=== PATIENT | male | born 1980 | race Caucasian/White ===

== ENCOUNTER 2020-07-11 23:32 | Inpatient (IN) | payer BC, SELFPAY ==
[2020-07-11 23:46] VITALS: BP 118/72; PULSE 82; RESP 20; TEMP 36.6; O2SAT 93
[2020-07-12] VITALS (9 sets, daily range): BP systolic 103–120; BP diastolic 60–64; PULSE 70–75; RESP 17–28; TEMP 36.5–37.7; O2SAT 93–97
--- NOTE | 2020-07-12 00:07 | W.PM.HP.N ---
Date of service: 07/11/20 Time of Service: 23:39 Assessment and Plan Assessment and plan (1) Pneumonia due to COVID-19 virus: Status: Acute Assessment and plan: Patient is admitted due to progression of hypoxia in the setting of COVID-19 infection. Respiratory precautions in place. Work-up at [facility] was consistent with Covid pneumonia. Given his requirement for oxygen support, he likely to benefit from dexamethasone and remdesivir, which I will initiate. Continue to monitor respiratory status support as needed. (2) DVT prophylaxis: Status: Acute Assessment and plan: Lovenox every 12 hours dosing given BMI (3) Discharge planning issues: Status: Acute Assessment and plan: Pending clinical improvement. Patient is currently stable on the medical floor. He is a full code History of Present Illness History of Present Illness Chief Complaint: Shortness of breath, COVID-19 positive Narrative: 39-year-old male with no significant past medical history but a BMI around 45 presenting with progression hypoxia noted on home monitoring after diagnosis of COVID-19. Patient states he has had for 6 days. He describes feeling hot and cold, diffuse body aches, nasal congestion and sore throat, and dry cough. He does feel short of breath with activity. He did lose his taste and smell. His symptoms have been pretty steady during the past 6 days, but he did notice after waking the morning of admission that his oxygen saturation was staying in the mid to high 80s where it had previously been in the 90s. Due to this he presented to the [facility]. He was transferred to [facility] due to a bed shortage at [facility]. At [facility] he received ibuprofen and 3 L of IV fluids. This 14-year-old son also has COVID-19 infection. Review of Systems Constitutional Constitutional: Reports body ache(s), Reports chills, Reports fatigue, Reports fever(s), Reports headache(s), Reports lethargy, Reports night sweats and Reports poor appetite Eyes Eyes: Denies change in vision and Denies irritation ENT Ears, Nose, Mouth, and Throat: Denies dizziness, Reports headache(s), Denies mouth lesions, Reports nasal congestion and Reports sore throat Cardiovascular Cardiovascular: Denies chest pain at rest and Denies palpitations Respiratory Respiratory: Reports cough, Denies hemoptysis, Denies excessive phlegm production and Denies wheezing Gastrointestinal Gastrointestinal: Denies abdominal pain, Denies heartburn, Denies diarrhea, Reports nausea and Denies vomiting Comments: Earlier in the week, not currently Genitourinary Genitourinary: Denies hematuria, Denies dysuria and Denies urinary incontinence Comments: Urine was very dark Musculoskeletal Musculoskeletal: Denies arthralgias and Denies joint swelling Integumentary/Breasts Skin/Breast: Denies rash and Denies skin ulcer Neurologic Neurologic: Denies confusion, Denies dizziness, Reports headache(s), Denies localized weakness and Denies sensory deficit Psychiatric Psychiatric: Denies confusion, Denies mood swings and Denies panic attacks Endocrine Endocrine: Reports fatigue and Denies palpitations Hematologic/Lymphatic Hematologic/Lymphatic: Denies easy bleeding Allergic/Immunologic Allergic/Immunologic: Denies wheezing [facility] Medical History (Updated 07/12/20 @ 00:22 by Sonny Brewer) Low back pain Surgical History (Updated 07/12/20 @ 00:14 by Sonny Brewer) History of back surgery Family History (Updated 07/12/20 @ 00:14 by Sonny Brewer) Other Colon cancer Social History (Updated 07/12/20 @ 00:16 by Snony Brewer) Smoking risk assessment performed?: No Alcohol Intake: current Alcohol Intake frequency: holidays/special occasions only Details: 4-5 beers twice a week or so Drug use: Never Do you feel safe at home: Yes Do you feel safe in your relationship?: Yes 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 Appears very tired, but no acute distress at rest. HEENT: Head atraumatic. Conjunctiva clear, no icterus. PEERL, EOMI. no rhinorrhea. MMM, OP benign. Neck is supple with no masses or lymphadenopathy, trachea midline LUNGS: CTAB except faint bibasilar rhonchi.no Rales. No wheezing. Normal effort CV: RRR with no murmurs, gallops, or rubs. ABD: +BS, soft, NT/ND EXT: no cyanosis, clubbing, or edema. normal toes. MSK: No joint redness or swelling NEURO: CN 2-12 grossly intact. Normal movement of 4 extremities. Normal speech and coordination SKIN: Skin is clammy, warm.. No rashs or open wounds. PSYCH: normal mood and affect Results Last Vital Signs Temp 36.6 C 07/11/20 23:46 Pulse 82 07/11/20 23:46 Resp 20 07/11/20 23:46 BP 118/72 07/11/20 23:46 Pulse Ox 93 07/11/20 23:46 COVID-19 Screening Have you, or household traveled for leisure in last 14 days?: No Had IN PERSON contact w/suspected or confirmed C-19 person: Yes
[2020-07-12] MEDS: Dexamethasone 4 MG/ML VIAL 6 MG IVP (00:40)
[2020-07-12] MEDS: Enoxaparin 40 MG/0.4 ML SYR SC ×2 (02:12→14:45)
[2020-07-12] MEDS: REMDESIVIR 200 MG in Normal Saline 250 ML 250 MG IVPB (02:12)
[2020-07-12 07:08] LABS: Platelet Count 143 10^3/uL (130-400)
[2020-07-12] MEDS: Acetaminophen 325 MG TAB 650 MG PO ×2 (09:15→17:54)
[2020-07-12] MEDS: Dexamethasone 4 MG TAB 6 MG PO (09:16)
[2020-07-12 10:40] LABS: Abs Immature Grans 0.04 10^3/uL (0.0-0.06); Absolute Lymphocyte Count 0.86 10^3/uL (1.2-3.4); Absolute Neutrophil Count 5.12 10^3/uL (1.2-6.7); HCT 40.4 % (40.0-50.0); HGB 13.4 g/dL (13.5-17.5); Immature Grans % 0.6; Lymphocytes % 13.4; MCH 29.9 pg (27.0-33.0); MCHC 33.2 % (32.0-36.0); MCV 90.2 fL (80-95); MPV 11.8 fL (8.0-11.0); Monocytes % 6.2; Neutrophils % 79.8; Nucleated RBC 0 %; Platelet Count 149 10^3/uL (130-400); RBC 4.48 10^6/uL (4.36-5.78); RDW 12.7 % (11.8-14.1); RDW-SD 42.5 fL; WBC 6.42 10^3/uL (4.4-10.8)
[2020-07-12 11:01] LABS: ALT 43 U/L (16-63); AST 38 U/L (15-37); Albumin 2.9 g/dL (3.4-5.0); Alkaline Phosphatase 33 U/L (46-116); Anion Gap 10.6 mmol/L (3-11); BUN 15 mg/dL (7-18); Bilirubin, Total 0.5 mg/dL (0.2-1.0); CO2 25.4 mmol/L (21.0-32.0); Calcium 7.7 mg/dL (8.5-10.1); Chloride 102 mmol/L (98-107); Glucose 152 mg/dL (74-106); Potassium 4.2 mmol/L (3.5-5.1); Sodium 138 mmol/L (136-145); Total Protein 6.6 g/dL (6.4-8.2)
[2020-07-12 11:02] LABS: NT-proBNP 59 pg/mL (<300); Troponin I < 0.05 ng/mL (<0.06)
[2020-07-12 11:03] LABS: C-Reactive Protein 1.73 mg/dL (0.0-0.3); LDH 353 U/L (85-227)
[2020-07-12] MEDS: Zinc Sulfate 220 MG TAB PO (11:14)
[2020-07-12] MEDS: Cholecalciferol (Vitamin D3) 1,000 UNIT TAB 2000 UNITS PO (11:14)
[2020-07-12] MEDS: Ascorbic Acid 500 MG TAB 1000 MG PO ×2 (11:14→19:23)
[2020-07-12 11:19] LABS: D-Dimer 840 ng/mlFEU (<500)
[2020-07-12 11:22] LABS: Procalcitonin < 0.1 ng/mL
--- NOTE | 2020-07-12 12:13 | PHA.REVIEW ---
Pharmacy Admission Review - Admission Clinical Review (Last Updated 07/12/20 @ 00:14 by Sonny Brewer) Discharge planning issues (Acute) DVT prophylaxis (Acute) Pneumonia due to COVID-19 virus (Acute) Height 6 ft Weight 152.5 kg - Renal Dosing Renal Dosing: BUN 15 mg/dL (7-18) 07/12/20 10:40 Creatinine 1.0 mg/dL (0.70-1.30) 07/12/20 10:40 Medications needing adjustments: Reviewed (Crcl over 100 mL/min current meds okay.) - Anticoagulation Anticoagulation: Hgb 13.4 g/dL (13.5-17.5) L 07/12/20 10:40 Hct 40.4 % (40.0-50.0) 07/12/20 10:40 Plt Count 149 10^3/uL (130-400) 07/12/20 10:40 Creatinine 1.0 mg/dL (0.70-1.30) 07/12/20 10:40 DVT Prohphylaxis: Reviewed Medications: Enoxaparin - Opiate Usage Evaluate Pain Scale/Pains Meds: N/A - Relevant Labs Sodium 138 mmol/L (136-145) 07/12/20 10:40 Potassium 4.2 mmol/L (3.5-5.1) 07/12/20 10:40 Chloride 102 mmol/L (98-107) 07/12/20 10:40 C-Reactive Protein 1.73 mg/dL (0.0-0.3) H 07/12/20 10:40 Electrolytes, C-Reactive P, ESR: Reviewed - DM Control DM Control: Glucose 152 mg/dL (74-106) H 07/12/20 10:40 Insulin Dosing: Reviewed (BG elevated, no DM noted in medical history and no previous labs on file) - Heart Failure/IN Heart Failure/IN: Troponin I < 0.05 ng/mL (<0.06) 07/12/20 10:40 NT-Pro-B Natriuret Pep 59 pg/mL (<300) 07/12/20 10:40 EF%, AURELIA's, B-Blockers, Diuretics: Reviewed - BP Control BP Control: Blood Pressure 114/60 Blood Pressure 112/60 Blood Pressure 120/64 If elevated: N/A - Qtc Review If Elevated: N/A - IV to PO Switch IV Medications: Reviewed - Home Meds Home Med List reviewed: Reviewed (No home meds listed) - Current meds Current Medication Order Review: Reviewed - Comments Comments/Follow Ups: Watch VS, SCr, LFTs, O2 sat., BG, and for med changes.
--- NOTE | 2020-07-12 13:17 | PDOC.CMIN ---
- If Service Date Differs Date of service: 07/12/20 Time of Service: 13:17 Care Management Initial Assess REASON FOR HOSPITALIZATION:: Pneumonia due to Covid 19 virus PAST MEDICAL HISTORY/PAST SURGICAL HISTORY:: Medical History (Updated 07/12/20 @ 00:22 by Sonny Brewer). Low back pain. Surgical History (Updated 07/12/20 @ 00:14 by Sonny Brewer). History of back surgery PREVIOUS FUNCTIONAL STATUS/SOCIAL/FAMILY SUPPORTS:: Markus lives in [place], [place] with his Zuleyka. He works as a contractor. Markus has a son who also has a Covid 19 infection. CURRENT FUNCTIONAL STATUS:: CM was unable to reach Markus by phone and was also unable to reach hs . Markus is on isolation as he is being treated for Covid pneumonia and CM was unable to visit in person. Information obtained from chart review and staff. ADVANCE DIRECTIVES:: None on file Has patient been provided with info about the portal/API?: No Did the patient sign up for the portal?: No CODE STATUS:: Full Code INSURANCE COVERAGE / FINANCIAL ISSUES:: [employer] PRIMARY CARE PHYSICIAN:: Wei Diaz POTENTIAL DISCHARGE NEEDS:: Follow up with PCP and discharge plan of care. May require continuation of IV therapy on an outpatient basis PATIENT/FAMILY EDUCATION NEEDS:: Review of discharge instructions, appropriate Covid precautions and limitations, follow up plan, Ask Me Three ANTICIPATED BARRIERS TO DISCHARGE:: Covid positive illness TRANSPORTATION:: via private vehicle with family PLAN:: Markus will likely return home with no new services unless additional IV therapy is needed. He will follow up with his community providers and plan of care and transport with family. CM will continue to support Markus and his discharge planning needs.
--- NOTE | 2020-07-12 15:11 | PGE_ITS ---
Date of Service Date of service: 07/12/20 Time of Service: 15:11 Assessment and Plan Assessment and plan (1) Pneumonia due to COVID-19 virus: Status: Acute Assessment and plan: Patient is admitted due to progression of hypoxia in the setting of COVID-19 infection. Respiratory precautions in place. Work-up at [facility] was consistent with Covid pneumonia. Given his requirement for oxygen support, he likely to benefit from dexamethasone and remdesivir, which I will initiate. Continue to monitor respiratory status support as needed. (2) DVT prophylaxis: Status: Acute Assessment and plan: Lovenox 40 mg every 12 hours dosing given BMI. If his d-dimer rises then consider switching to full 1 mg/kg SC Q12h. (3) Hyperglycemia: Status: Acute Assessment and plan: Patient apparently was on prednisone 20 mg x 5 days prior to coming to the ER yesterday. He is now on dexamethsone 6 mg daily for COVID-19 pneumonia w/ hypoxemia. I will monitor his glucose AC/HS, check A1c and provide sliding scale coverage. I will also put him on NPH at 3 units per mg of glucocorticoid equivalent (i.e. 18 units of NPH divided bid) to provide coverage of his hyperglycemic response to corticosteroids. (4) Discharge planning issues: Status: Acute Assessment and plan: Pending clinical improvement. Patient is currently stable on the medical floor. He is a full code Subjective Subjective Interval history since last seen: 39-year-old male non-smoker with no chronic medical history other than obesity presented with progressive hypoxemia. He was diagnosed with COVID-19 on July 07 after developing symptoms the Wednesday before (06/07). Exposure included his mother who visited from [place], [place]. No other known exposures. His son also came down ill w/ COVID-19 at the same time. Symptoms include fever chills myalgias nasal congestion sore throat and a dry cough along with shortness of breath. He also has anosmia and dysgeusia. He brought in amatory pulse oximetry and was monitor his oxygen saturations at home but yesterday morning woke up and noticed his oxygen saturations were in the mid to high 80s whereas it had been 90s. He presented to the emergency department at [facility] in [facility] but because of a shortage of inpatient bed she was transferred to [facility] At [facility] he received IV fluids and ibuprofen. Dr. Brewer admitted the patient and started him on remdesivir and Decadron and enoxaparin at moderate dose 40 mg SC bid. Labs this morning: CBC essentially normal except for mild lymphocytopenia (860). CMP: normal electrolytes, elevate glucose (152), minimal elevated AST 38, LDH 353, CRP 1.73, normal procalcitonin <0.1. Normal troponin and BNP, d-dimer is elevated at 840. Patient is cooperating w/ performing proning maneuvers. His SPO2 is 95% on 2 lpm NC. He has a cough that is non-productive. He denies any current CP, no change in his degree of dyspnea (not dyspneic at rest but gets dyspnea w/ activity); feels very fatigued and tired all the time. Exam Narrative Exam Narrative: Morbidly obese white male lying in his bed in the prone position. He rolled over in side to talk to me. He is not using his accessory respiratory muscles. He is able to speak in full sentences. Lungs are clear to auscultation anteriorly posteriorly there are some fine dry rales no rhonchi no wheezes. Heart is regular rate and rhythm Abdomen is obese soft and nontender Lower extremities are obese but calves are soft nontender negative Homans' sign. No peripheral cyanosis or edema. Objective Last Vital Signs Temp 36.8 C 07/12/20 11:14 Pulse 70 07/12/20 11:14 Resp 20 07/12/20 11:14 BP 114/60 07/12/20 11:14 Pulse Ox 95 07/12/20 11:14 Laboratory Results - last 24 hr 07/12/20 07/12/20 07/12/20 06:40 10:40 10:40 WBC 6.42 RBC 4.48 Hgb 13.4 L Hct 40.4 MCV 90.2 MCH 29.9 MCHC 33.2 RDW 12.7 Plt Count 143 149 MPV 11.8 H Immature Gran % 0.6 Neutrophils % 79.8 Lymphocytes % 13.4 Monocytes % 6.2 Eosinophils % 0.0 Basophils % 0.0 Nucleated RBC % 0 Absolute Neutrophils 5.12 Absolute Lymphocytes 0.86 L Absolute Monocytes 0.40 Absolute Eosinophils 0.00 Absolute Basophils 0.00 D-Dimer Sodium 138 Potassium 4.2 Chloride 102 Carbon Dioxide 25.4 Anion Gap 10.6 BUN 15 Creatinine 1.0 Estimated GFR/1.73 m2 >= 60.00 Glucose 152 H Calcium 7.7 L Total Bilirubin 0.5 AST 38 H ALT 43 Alkaline Phosphatase 33 L Lactate Dehydrogenase Troponin I C-Reactive Protein NT-Pro-B Natriuret Pep Total Protein 6.6 Albumin 2.9 L Procalcitonin Patient ABO/Rh Antibody Screen 07/12/20 07/12/20 07/12/20 10:40 10:40 10:40 WBC RBC Hgb Hct MCV MCH MCHC RDW Plt Count MPV Immature Gran % Neutrophils % Lymphocytes % Monocytes % Eosinophils % Basophils % Nucleated RBC % Absolute Neutrophils Absolute Lymphocytes Absolute Monocytes Absolute Eosinophils Absolute Basophils D-Dimer 840 H Sodium Potassium Chloride Carbon Dioxide Anion Gap BUN Creatinine Estimated GFR/1.73 m2 Glucose Calcium Total Bilirubin AST ALT Alkaline Phosphatase Lactate Dehydrogenase 353 H Troponin I C-Reactive Protein 1.73 H NT-Pro-B Natriuret Pep Total Protein Albumin Procalcitonin Patient ABO/Rh O Positive Antibody Screen Negative 07/12/20 07/12/20 10:40 10:40 WBC RBC Hgb Hct MCV MCH MCHC RDW Plt Count MPV Immature Gran % Neutrophils % Lymphocytes % Monocytes % Eosinophils % Basophils % Nucleated RBC % Absolute Neutrophils Absolute Lymphocytes Absolute Monocytes Absolute Eosinophils Absolute Basophils D-Dimer Sodium Potassium Chloride Carbon Dioxide Anion Gap BUN Creatinine Estimated GFR/1.73 m2 Glucose Calcium Total Bilirubin AST ALT Alkaline Phosphatase Lactate Dehydrogenase Troponin I < 0.05 C-Reactive Protein NT-Pro-B Natriuret Pep 59 Total Protein Albumin Procalcitonin < 0.1 Patient ABO/Rh Antibody Screen
--- NOTE | 2020-07-12 19:10 | RESPIRATORY ---
RT asked by Nursing to assess patient when ambulating to bathroom for desaturations. RT had patient walk from bed to door back twice. Patient maintained SpO2 of 91%-93% on 2L and walked at slow pace. Rt instructed patient to prone as much as possible tonight and if not lay, on either side, no back sleeping. Rt suggested to place patient on 3L NC when he's moving to prevent desaturation.
[2020-07-12] MEDS: Atorvastatin 40 MG TAB PO (19:24)
[2020-07-12] MEDS: Normal Saline Flush 10 ML SYR IVP ×2 (21:25→22:51)
[2020-07-12] MEDS: Melatonin 3 MG TAB 6 MG PO (21:25)
[2020-07-12] MEDS: Insulin NPH-Human 300 UNITS/3 ML PEN 9 UNIT SC (22:40)
[2020-07-12] MEDS: traMADol 50 MG TAB 100 MG PO (22:50)
[2020-07-13] VITALS (12 sets, daily range): BP systolic 95–108; BP diastolic 47–55; PULSE 51–77; RESP 16–18; TEMP 36.2–36.8; O2SAT 92–96
[2020-07-13] MEDS: Enoxaparin 40 MG/0.4 ML SYR SC ×2 (03:11→15:15)
[2020-07-13 07:21] LABS: Abs Immature Grans 0.04 10^3/uL (0.0-0.06); Absolute Basophil Count 0.01 10^3/uL (0.0-0.2); Absolute Lymphocyte Count 1.53 10^3/uL (1.2-3.4); Absolute Monocyte Count 0.63 10^3/uL (0.1-0.8); Absolute Neutrophil Count 5.83 10^3/uL (1.2-6.7); Basophils % 0.1; HCT 42.1 % (40.0-50.0); Immature Grans % 0.5; MCH 29.4 pg (27.0-33.0); MCHC 33.3 % (32.0-36.0); MCV 88.3 fL (80-95); MPV 12.1 fL (8.0-11.0); Monocytes % 7.8; Neutrophils % 72.6; Nucleated RBC 0 %; Platelet Count 176 10^3/uL (130-400); RBC 4.77 10^6/uL (4.36-5.78); RDW 12.5 % (11.8-14.1); RDW-SD 40.8 fL; WBC 8.04 10^3/uL (4.4-10.8)
[2020-07-13 07:33] LABS: ALT 48 U/L (16-63); AST 39 U/L (15-37); Alkaline Phosphatase 35 U/L (46-116); Anion Gap 6.3 mmol/L (3-11); BUN 17 mg/dL (7-18); Bilirubin, Total 0.6 mg/dL (0.2-1.0); C-Reactive Protein 0.94 mg/dL (0.0-0.3); CO2 28.7 mmol/L (21.0-32.0); Chloride 103 mmol/L (98-107); Glucose 100 mg/dL (74-106); Potassium 4.1 mmol/L (3.5-5.1); Sodium 138 mmol/L (136-145); Total Protein 6.8 g/dL (6.4-8.2)
[2020-07-13 07:44] LABS: Hemoglobin A1C 5.7 % (<5.7)
[2020-07-13 07:51] LABS: D-Dimer 715 ng/mlFEU (<500)
[2020-07-13] MEDS: Insulin NPH-Human 300 UNITS/3 ML PEN 9 UNIT SC ×2 (09:02→17:18)
[2020-07-13] MEDS: Dexamethasone 4 MG TAB 6 MG PO (09:03)
[2020-07-13] MEDS: Cholecalciferol (Vitamin D3) 1,000 UNIT TAB 2000 UNITS PO (09:03)
[2020-07-13] MEDS: Zinc Sulfate 220 MG TAB PO (09:03)
[2020-07-13] MEDS: traMADol 50 MG TAB 100 MG PO ×2 (09:04→23:08)
[2020-07-13] MEDS: Ascorbic Acid 500 MG TAB 1000 MG PO ×2 (09:04→23:07)
--- NOTE | 2020-07-13 11:04 | CMPROGNOTE_ITS ---
- If Service Date Differs Date of service: 07/13/20 Time of Service: 11:04 Care Management Progress Note S/O: Markus is improving but continues to require inpatient level of care. He continues treatment with oral Decadron and is receiving Remdesivir infusions. His oxygen saturation was 96% on 2L of O2. His O2 was weaned down to 1L today. Markus continues to be short of breath with activity. A: Markus is a 39 year old male admitted to [facility] on 07/11/2020 for pneumonia due to Covid 19. P: No change in plan. Markus will likely return home with no new services unless additional IV therapy is needed. He will follow up with his community providers and plan of care and transport with family. CM will continue to support Marksu and his discharge planning needs.
[2020-07-13] MEDS: Acetaminophen 325 MG TAB 650 MG PO (15:15)
--- NOTE | 2020-07-13 17:01 | W.PM.PROGNOT ---
Date of Service Date of service: 07/13/20 Time of Service: 17:01 Assessment and Plan Assessment and plan (1) Pneumonia due to COVID-19 virus: Status: Acute Assessment and plan: Continue decadron/remdesivir. Continue proning. Continue vitamin c, d, zinc, melatonin, pepcid. Encourage IS. Wean O2 as tolerated. (2) Hypoxia: Status: Acute Assessment and plan: As above (3) Hyperglycemia: Status: Acute Assessment and plan: Prediabetes by labs (A1C of 5.7). STeroid- induced hyperglycemia is a factor. DM educator consulted. Continue NPH/SSI. COntinue carb consistent diet while on steroids. (4) DVT prophylaxis: Status: Acute Assessment and plan: Lovenox 40 mg every 12 hours. (5) Discharge planning issues: Status: Acute Assessment and plan: Full code Continues to require hospitalization Subjective Subjective Interval history since last seen: Mr Ortega states that he sometimes feels better and sometimes worse. He gets waves of diaphoresis when he has to breathe. No chest pain per se, but there is discomfort. Cough is productive of clear sputum. Denies nausea/diarrhea. Appetite is poor. O2 just weaned down to 1L. Proning. Exam Narrative Exam Narrative: General: pleasant obese male who is laying on his right side when I came to see him, A&Ox3, no dyspnea/tachypnea HEENT: EOMI, MMM Heart: RRR, no m/r/g Lungs:crackles R base Abdomen: soft, nontender, nondistended Extremities: trace edema BLEs, symmetric Objective Last Vital Signs Temp 36.2 C L 07/13/20 15:14 Pulse 65 07/13/20 15:14 Resp 18 07/13/20 15:14 BP 105/52 L 07/13/20 15:14 Pulse Ox 92 07/13/20 16:01 Laboratory Results - last 24 hr 07/13/20 07/13/20 07/13/20 06:55 06:55 06:55 WBC 8.04 RBC 4.77 Hgb 14.0 Hct 42.1 MCV 88.3 MCH 29.4 MCHC 33.3 RDW 12.5 Plt Count 176 MPV 12.1 H Immature Gran % 0.5 Neutrophils % 72.6 Lymphocytes % 19.0 Monocytes % 7.8 Eosinophils % 0.0 Basophils % 0.1 Nucleated RBC % 0 Absolute Neutrophils 5.83 Absolute Lymphocytes 1.53 Absolute Monocytes 0.63 Absolute Eosinophils 0.00 Absolute Basophils 0.01 D-Dimer 715 H Sodium 138 Potassium 4.1 Chloride 103 Carbon Dioxide 28.7 Anion Gap 6.3 BUN 17 Creatinine 1.0 Estimated GFR/1.73 m2 >= 60.00 Glucose 100 D Hemoglobin A1c Calcium 8.0 L Total Bilirubin 0.6 AST 39 H ALT 48 Alkaline Phosphatase 35 L C-Reactive Protein 0.94 H Total Protein 6.8 Albumin 3.0 L 07/13/20 06:55 WBC RBC Hgb Hct MCV MCH MCHC RDW Plt Count MPV Immature Gran % Neutrophils % Lymphocytes % Monocytes % Eosinophils % Basophils % Nucleated RBC % Absolute Neutrophils Absolute Lymphocytes Absolute Monocytes Absolute Eosinophils Absolute Basophils D-Dimer Sodium Potassium Chloride Carbon Dioxide Anion Gap BUN Creatinine Estimated GFR/1.73 m2 Glucose Hemoglobin A1c 5.7 Calcium Total Bilirubin AST ALT Alkaline Phosphatase C-Reactive Protein Total Protein Albumin
[2020-07-13] MEDS: Insulin Aspart 300 UNITS/3 ML PEN SC (17:18)
[2020-07-13] MEDS: Normal Saline 500 ML 30 ML IV (23:05)
[2020-07-13] MEDS: Normal Saline Flush 10 ML SYR IVP (23:06)
[2020-07-13] MEDS: Famotidine 20 MG TAB PO (23:07)
[2020-07-13] MEDS: Melatonin 3 MG TAB 6 MG PO (23:07)
[2020-07-13] MEDS: Atorvastatin 40 MG TAB PO (23:08)
[2020-07-14] VITALS (11 sets, daily range): BP systolic 94–120; BP diastolic 49–64; PULSE 46–73; RESP 18–22; TEMP 36.3–36.8; O2SAT 93–95
[2020-07-14] MEDS: Enoxaparin 40 MG/0.4 ML SYR SC ×2 (02:20→15:24)
[2020-07-14 07:24] LABS: Abs Immature Grans 0.04 10^3/uL (0.0-0.06); Absolute Basophil Count 0.01 10^3/uL (0.0-0.2); Absolute Lymphocyte Count 1.56 10^3/uL (1.2-3.4); Absolute Monocyte Count 0.77 10^3/uL (0.1-0.8); Absolute Neutrophil Count 3.59 10^3/uL (1.2-6.7); Basophils % 0.2; HCT 42.9 % (40.0-50.0); Immature Grans % 0.7; Lymphocytes % 26.1; MCH 29.2 pg (27.0-33.0); MCHC 32.6 % (32.0-36.0); MCV 89.6 fL (80-95); MPV 11.5 fL (8.0-11.0); Monocytes % 12.9; Neutrophils % 60.1; Nucleated RBC 0 %; Platelet Count 156 10^3/uL (130-400); RBC 4.79 10^6/uL (4.36-5.78); RDW 12.5 % (11.8-14.1); RDW-SD 41.7 fL; WBC 5.97 10^3/uL (4.4-10.8)
[2020-07-14 07:59] LABS: D-Dimer 571 ng/mlFEU (<500)
[2020-07-14 08:21] LABS: ALT 49 U/L (16-63); AST 34 U/L (15-37); Albumin 2.9 g/dL (3.4-5.0); Alkaline Phosphatase 31 U/L (46-116); Anion Gap 5.8 mmol/L (3-11); BUN 17 mg/dL (7-18); Bilirubin, Total 0.7 mg/dL (0.2-1.0); CO2 29.2 mmol/L (21.0-32.0); CREATININE 0.8 mg/dL (0.70-1.30); Calcium 8.1 mg/dL (8.5-10.1); Chloride 104 mmol/L (98-107); Ferritin 1311 ng/mL (26-388); Glucose 96 mg/dL (74-106); Potassium 4.1 mmol/L (3.5-5.1); Sodium 139 mmol/L (136-145); Total Protein 6.6 g/dL (6.4-8.2); Troponin I < 0.05 ng/mL (<0.06)
[2020-07-14 08:28] LABS: C-Reactive Protein 1.75 mg/dL (0.0-0.3)
[2020-07-14] MEDS: Insulin NPH-Human 300 UNITS/3 ML PEN 9 UNIT SC ×2 (08:34→17:13)
[2020-07-14] MEDS: Famotidine 20 MG TAB PO ×2 (08:35→19:35)
[2020-07-14] MEDS: Cholecalciferol (Vitamin D3) 1,000 UNIT TAB 4000 UNITS PO (08:35)
[2020-07-14] MEDS: Dexamethasone 4 MG TAB 6 MG PO (08:35)
[2020-07-14] MEDS: Ascorbic Acid 500 MG TAB 1000 MG PO ×2 (08:35→19:35)
[2020-07-14] MEDS: Zinc Sulfate 220 MG TAB PO (08:35)
[2020-07-14] MEDS: Normal Saline 1,000 ML 100 ML IV ×2 (09:47→19:43)
--- NOTE | 2020-07-14 14:20 | CMPROGNOTE_ITS ---
- If Service Date Differs Date of service: 07/14/20 Time of Service: 14:20 Care Management Progress Note S/O: Markus is improving but continues to require inpatient level of care. He continues treatment with oral Decadron , Remdesivir infusions and proning. His oxygen saturation remains between 93 and 95% on 1 L of nasal O2. Markus has had a couple of episodes of diaphoresis today and continues to be short of breath with activity. A: Markus is a 39 year old male admitted to [facility] on 07/11/2020 for pneumonia due to Covid 19. P: No change in plan. Markus will likely return home with no new services unless additional IV therapy is needed. He will follow up with his community providers and plan of care and transport with family. CM will continue to support Markus and his discharge planning needs.
--- NOTE | 2020-07-14 16:51 | PGE_ITS ---
Date of Service Date of service: 07/14/20 Time of Service: 16:51 Assessment and Plan Assessment and plan (1) Pneumonia due to COVID-19 virus: Status: Acute Assessment and plan: Continue decadron/remdesivir. Continue proning. Continue vitamin c, d, zinc, melatonin, pepcid. Encourage IS. Wean O2 as tolerated. Cautious IVF. CRP slightly worse today - continue to monitor. (2) Hypoxia: Status: Acute Assessment and plan: As above Down to 1L of O2 by NC. (3) Hyperglycemia: Status: Acute Assessment and plan: Prediabetes by labs (A1C of 5.7). STeroid- induced hy perglycemia is a factor. DM educator consulted. Continue NPH/SSI. Continue carb consistent diet while on steroids. (4) Orthostatic hypotension: Status: Acute Assessment and plan: Cautious IVF (5) DVT prophylaxis: Status: Acute Assessment and plan: Lovenox 40 mg every 12 hours. (6) Discharge planning issues: Status: Acute Assessment and plan: Full code Continues to require hospitalization Subjective Subjective Interval history since last seen: Continues to report diaphoresis and dizziness with position changes. Does not feel well today. Denies chest pain, feels PÉREZ, denies nausea. Has been proning (both on his abdomen and side to side). Orthostatic. Initiated on IVF. Exam Narrative Exam Narrative: General: pleasant obese male who is sitting at the edge of the bed, A&Ox3, no dyspnea/tachypnea, but is diaphoretic and does not look well HEENT: EOMI, MMM Heart: RRR, no m/r/g Lungs:Diminished breath sounds B Abdomen: soft, nontender, nondistended Extremities: trace edema BLEs, symmetric Objective Last Vital Signs Temp 36.6 C 07/14/20 15:23 Pulse 64 07/14/20 15:23 Resp 18 07/14/20 15:23 BP 114/63 07/14/20 15:23 Pulse Ox 95 07/14/20 15:23 Laboratory Results - last 24 hr 07/14/20 07/14/20 07/14/20 06:30 06:30 06:30 WBC 5.97 RBC 4.79 Hgb 14.0 Hct 42.9 MCV 89.6 MCH 29.2 MCHC 32.6 RDW 12.5 Plt Count 156 MPV 11.5 H Immature Gran % 0.7 Neutrophils % 60.1 Lymphocytes % 26.1 Monocytes % 12.9 Eosinophils % 0.0 Basophils % 0.2 Nucleated RBC % 0 Absolute Neutrophils 3.59 Absolute Lymphocytes 1.56 Absolute Monocytes 0.77 Absolute Eosinophils 0.00 Absolute Basophils 0.01 D-Dimer 571 H Sodium 139 Potassium 4.1 Chloride 104 Carbon Dioxide 29.2 Anion Gap 5.8 BUN 17 Creatinine 0.8 Estimated GFR/1.73 m2 >= 60.00 Glucose 96 Calcium 8.1 L Ferritin 1311 H Total Bilirubin 0.7 AST 34 ALT 49 Alkaline Phosphatase 31 L Troponin I < 0.05 C-Reactive Protein 1.75 H Total Protein 6.6 Albumin 2.9 L
[2020-07-14] MEDS: Insulin Aspart 300 UNITS/3 ML PEN SC (17:14)
[2020-07-14] MEDS: Atorvastatin 40 MG TAB PO (19:35)
[2020-07-14] MEDS: Melatonin 3 MG TAB 6 MG PO (21:43)
[2020-07-15] VITALS (12 sets, daily range): BP systolic 103–123; BP diastolic 47–68; PULSE 55–72; RESP 18; TEMP 36.5–36.8; O2SAT 93–95
[2020-07-15] MEDS: Enoxaparin 40 MG/0.4 ML SYR SC ×2 (02:54→15:09)
[2020-07-15 05:37] LABS: Vitamin D 25 Total 22.4 ng/mL (30-100)
[2020-07-15 07:21] LABS: Abs Immature Grans 0.06 10^3/uL (0.0-0.06); Absolute Basophil Count 0.01 10^3/uL (0.0-0.2); Absolute Lymphocyte Count 1.82 10^3/uL (1.2-3.4); Absolute Monocyte Count 0.79 10^3/uL (0.1-0.8); Absolute Neutrophil Count 5.02 10^3/uL (1.2-6.7); Basophils % 0.1; HCT 42.7 % (40.0-50.0); HGB 14.1 g/dL (13.5-17.5); Immature Grans % 0.8; Lymphocytes % 23.6; MCV 87.9 fL (80-95); MPV 11.4 fL (8.0-11.0); Monocytes % 10.3; Neutrophils % 65.2; Nucleated RBC 0 %; Platelet Count 199 10^3/uL (130-400); RBC 4.86 10^6/uL (4.36-5.78); RDW 12.4 % (11.8-14.1); RDW-SD 40.4 fL
[2020-07-15 07:45] LABS: ALT 53 U/L (16-63); AST 33 U/L (15-37); Alkaline Phosphatase 32 U/L (46-116); Anion Gap 6.3 mmol/L (3-11); BUN 15 mg/dL (7-18); Bilirubin, Direct 0.2 mg/dL (0.0-0.2); Bilirubin, Total 0.7 mg/dL (0.2-1.0); C-Reactive Protein 1.27 mg/dL (0.0-0.3); CO2 29.7 mmol/L (21.0-32.0); CREATININE 0.9 mg/dL (0.70-1.30); Calcium 8.3 mg/dL (8.5-10.1); Chloride 104 mmol/L (98-107); Glucose 85 mg/dL (74-106); Magnesium 1.9 mg/dL (1.8-2.4); Potassium 3.8 mmol/L (3.5-5.1); Sodium 140 mmol/L (136-145); Total Protein 6.7 g/dL (6.4-8.2)
[2020-07-15 07:46] LABS: Troponin I < 0.05 ng/mL (<0.06)
[2020-07-15] MEDS: Insulin NPH-Human 300 UNITS/3 ML PEN 9 UNIT SC ×2 (07:58→17:04)
[2020-07-15] MEDS: Ascorbic Acid 500 MG TAB 1000 MG PO ×2 (07:59→19:56)
[2020-07-15] MEDS: Zinc Sulfate 220 MG TAB PO (07:59)
[2020-07-15] MEDS: Cholecalciferol (Vitamin D3) 1,000 UNIT TAB 4000 UNITS PO (07:59)
[2020-07-15] MEDS: Dexamethasone 4 MG TAB 6 MG PO (07:59)
[2020-07-15] MEDS: Famotidine 20 MG TAB PO ×2 (07:59→19:56)
[2020-07-15 08:25] LABS: D-Dimer 519 ng/mlFEU (<500)
[2020-07-15 08:30] LABS: Ferritin 1271 ng/mL (26-388)
--- NOTE | 2020-07-15 13:11 | W.INDIABCONS ---
Date of service: 07/15/20 Time of Service: 13:11 Diabetes Inpatient Consult DESCRIPTION/ASSESSMENT: 39 year old male admitted with Covid positive PNA with DM2 and morbid obesity. Most recent A1C 5.7% indicates good glycemic control on current home DM regimen. Labs indicate low Vit D, being repleted per med list. Following diabetic diet with excellent intake. Nursing reports will be going home soon. Would benefit from weight loss. PLAN: continue current DM diet will monitor po intake, labs, wieghts Time Spent in Nutritional Counseling and Treatment: 0
--- NOTE | 2020-07-15 16:59 | W.PM.PROGNOT ---
Date of Service Date of service: 07/15/20 Time of Service: 16:50 Assessment and Plan Assessment and plan (1) Pneumonia due to COVID-19 virus: Status: Acute Assessment and plan: Improved. O2 requirement now RA. Continue decadron/remdesivir. Continue proning. Continue vitamin c, d, zinc, melatonin, pepcid. Encourage IS. (2) Hypoxia: Status: Resolved Assessment and plan: Check exercise pulse ox prior to d/c. (3) Hyperglycemia: Status: Acute Assessment and plan: Prediabetes by labs (A1C of 5.7). STeroid- induced hyperglycemia is a factor. DM educator consulted. Continue NPH/SSI. Continue carb consistent diet while on steroids. (4) Orthostatic hypotension: Status: Resolved Assessment and plan: Dysautonomia due to COVID-19. IVF d/c'ed. (5) DVT prophylaxis: Status: Acute Assessment and plan: Lovenox 40 mg every 12 hours. (6) Discharge planning issues: Status: Acute Assessment and plan: Full code Likely discharge home tomorrow. Subjective Subjective Interval history since last seen: Feels much better. Took a shower today after which he no longer felt dizzy or diaphoretic. breathing is better. Weaned to RA today. Denies chest pain, nausea. Still coughing. Today's visit was performed over the phone due to patient's improvement and his diagnosis of COVID-19 pneumonia. Exam Narrative Exam Narrative: Physical exam not performed: this was a phone visit. Objective Last Vital Signs Temp 36.7 C 07/15/20 15:08 Pulse 72 07/15/20 16:10 Resp 18 07/15/20 15:08 BP 103/68 07/15/20 15:08 Pulse Ox 94 07/15/20 15:08 Laboratory Results - last 24 hr 07/14/20 07/15/20 07/15/20 06:30 06:55 06:55 WBC 7.70 RBC 4.86 Hgb 14.1 Hct 42.7 MCV 87.9 MCH 29.0 MCHC 33.0 RDW 12.4 Plt Count 199 MPV 11.4 H Immature Gran % 0.8 Neutrophils % 65.2 Lymphocytes % 23.6 Monocytes % 10.3 Eosinophils % 0.0 Basophils % 0.1 Nucleated RBC % 0 Absolute Neutrophils 5.02 Absolute Lymphocytes 1.82 Absolute Monocytes 0.79 Absolute Eosinophils 0.00 Absolute Basophils 0.01 D-Dimer Sodium 140 Potassium 3.8 Chloride 104 Carbon Dioxide 29.7 Anion Gap 6.3 BUN 15 Creatinine 0.9 Estimated GFR/1.73 m2 >= 60.00 Glucose 85 Calcium 8.3 L Magnesium 1.9 Ferritin 1271 H Total Bilirubin 0.7 Conjugated Bilirubin 0.2 AST 33 ALT 53 Alkaline Phosphatase 32 L Troponin I < 0.05 C-Reactive Protein 1.27 H Total Protein 6.7 Albumin 3.0 L 25-OH Vitamin D Total 22.4 L // 06:55 WBC RBC Hgb Hct MCV MCH MCHC RDW Plt Count MPV Immature Gran % Neutrophils % Lymphocytes % Monocytes % Eosinophils % Basophils % Nucleated RBC % Absolute Neutrophils Absolute Lymphocytes Absolute Monocytes Absolute Eosinophils Absolute Basophils D-Dimer 519 H Sodium Potassium Chloride Carbon Dioxide Anion Gap BUN Creatinine Estimated GFR/1.73 m2 Glucose Calcium Magnesium Ferritin Total Bilirubin Conjugated Bilirubin AST ALT Alkaline Phosphatase Troponin I C-Reactive Protein Total Protein Albumin 25-OH Vitamin D Total
--- NOTE | 2020-07-15 17:52 | PDOC.CMPRO ---
Care Management Progress Note S/O: Markus is improving but continues to require inpatient level of care. He continues treatment with oral Decadron , Remdesivir infusions and proning. CM continues to follow. A: Markus is a 39 year old male admitted to [facility] on 07/11/2020 for pneumonia due to Covid 19. P: No change in plan. Markus will likely return home with no new services unless additional IV therapy is needed. He will follow up with his community providers and plan of care and transport with family. CM will continue to support Markus and his discharge planning needs.
[2020-07-15] MEDS: Atorvastatin 40 MG TAB PO (19:56)
[2020-07-16 03:02] VITALS: BP 110/59; PULSE 57; RESP 17; TEMP 36.8; O2SAT 94
[2020-07-16] MEDS: Enoxaparin 40 MG/0.4 ML SYR SC (03:02)
[2020-07-16 07:26] VITALS: PULSE 60
[2020-07-16] MEDS: Dexamethasone 4 MG TAB 6 MG PO (08:21)
[2020-07-16] MEDS: Famotidine 20 MG TAB PO (08:21)
[2020-07-16] MEDS: Cholecalciferol (Vitamin D3) 1,000 UNIT TAB 4000 UNITS PO (08:21)
[2020-07-16] MEDS: Ascorbic Acid 500 MG TAB 1000 MG PO (08:21)
[2020-07-16] MEDS: Zinc Sulfate 220 MG TAB PO (08:22)
[2020-07-16 08:25] VITALS: BP 102/53; PULSE 80; RESP 16; TEMP 36.6; O2SAT 94
[2020-07-16] MEDS: Insulin NPH-Human 300 UNITS/3 ML PEN 9 UNIT SC (08:56)
[2020-07-16 10:25] VITALS: PULSE 73; PULSE 76; PULSE 83; RESP 16; RESP 24; O2SAT 89; O2SAT 94; O2SAT 95
[2020-07-16 10:29] VITALS: PULSE 70
--- NOTE | 2020-07-16 12:19 | DSE_ITS ---
Date of service: 07/16/20 Time of Service: 12:19 DS: Diagnosis Discharge Diagnosis (1) Pneumonia due to COVID-19 virus: Status: Acute (2) Hypoxia: Status: Resolved (3) Orthostatic hypotension: Status: Resolved (4) Prediabetes: Status: Acute (5) Steroid-induced hyperglycemia: Status: Resolved (6) Obesity, morbid, BMI 40.0-49.9: Status: Chronic Discharge Plan Disposition Patient Disposition: HOME Condition: Improving Discharge Details Reason For Visit: COVID 19 PNEUMONIA Admit Date/Time: 07/11/20 23:32 Admit Provider: Sonny Brewer Attending Provider: Sonny Brewer Primary Care Provider: Wei Diaz Hospital Course Hospital Course: Mr Ortega is a 39 year old male with PMHx of obesity with BMI of 46 as well and an outpatient diagnosis of COVID-19 who was a patient on [facility] hospitalist service from 07/11/20 until 07/16/2020 for covid-19 pneumonia complicated by hypoxia (mid to high 80s on room air) and dysautonomia resulting in orthostatic hypotension. The patient received dexamethasone, remdesivir, O2 supplementation (the most the patient required was 3L of O2), vitamin C/D/zinc/melatonin, proning, incentive spirometry, and very limited IVF when orthostasis was noted. On this admission, the patient had steroid induced hyperglycemia, though he does in fact have pre-diabetes with A1C of 5.7, which he should follow up on with his PCP. He is on room air today and is being discharged home to complete a short steroid taper and instructions to continue proning and IS at home. THe patient is instructed to return to the ED should his symptoms worsen or O2 sat go consistently down in the 80s. He is also instructed to monitor himself for leg swelling. Patient verbalized understanding. He should follow up with his PCP in 1-2 weeks Care for patient as well as completion of his discharge summary took 1 hr on the day of discharge. Home Meds and New Rx's Prescriptions: New acetaminophen [Tylenol] 325 mg Tablet 650 mg PO Q4H PRN PRNQty: 0 RF: 0 ascorbic acid (vitamin C) [Vitamin C] 500 mg Tablet 1,000 mg PO BID Qty: 0 RF: 0 cholecalciferol (vitamin D3) 25 mcg (1,000 unit) Tablet 2,000 unit PO DAILY Qty: 0 RF: 0 dexamethasone 4 mg Tablet See Rx Instructions .ROUTE .COMPLEX Qty: 4 RF: 0 famotidine 20 mg Tablet 20 mg PO BID Qty: 0 RF: 0 melatonin 3 mg Tablet Extended Release 6 mg PO HS PRN PRNQty: 30 RF: 0 zinc sulfate [Zinc-220] 50 mg zinc (220 mg) Capsule 220 mg PO DAILY Qty: 7 RF: 0 Discharge Instructions Instructions: Dexamethasone (By mouth), How to Use an Incentive Spirometer (DC), COVID-19 (Coronavirus Disease 2019) (DC) Additional Instructions: Continue to take vitamin C, D, zin, melatonin when you go home. Finish dexamethasone taper as prescribed. Continue to do proning from side to side at home and to use your incentive spirometer. Return to the hospital with any fever, bleeding, chest pain, shortness of breath, or if you notice new swelling in your legs. Stand Alone Forms: Nursing Discharge Form Referrals: Wei Diaz [Primary Care Provider] - (call your pcp to see if they would like like to see you, after 14 days symptom free) Activity:: Activity as Tolerated Equipment/Supplies:: incentive spirometer Diet:: As Tolerated Discharge Orders Discharge Orders: Discharge Order (Routine); Ordered 07/16/20 Ordered By: Hattie Doran Discharge Data Discharge Date/Time-TO BE ENTERED AT DEPARTURE: 07/16/20 12:53 DS: Summary Time Spent with Patient providing and/or coordinating discharge services: Greater than 30 minutes Status at Discharge Functional status at discharge: independent ambulation Overall status at discharge: patient is progressing back to baseline Mental Status: mental status grossly normal Speech and Movement: speech and movement normal Mood: congruent mood Affect: normal affect Exam Narrative Exam Narrative: General: Pleasant obese male, sitting at the side of the bed, no cyanosis HEENT: EOMI, MMM Heart: RRR, no m/r/g Lungs: CTAB Abdomen: soft, nontender, nondistended Extremities: nonpitting edema BLEs, chronic, unchanged Psych Mental Status: mental status grossly normal Speech and Movement: speech and movement normal Mood: congruent mood Affect: normal affect DS: Data Vitals/I&O Vitals and I&O: Vital Signs Temperature 36.6 C 07/16/20 08:25 Temperature Source Tympanic 07/16/20 08:25 Pulse 70 07/16/20 10:29 Pulse Rhythm Regular 07/15/20 20:05 Pulse 57 L 07/14/20 02:29 Respiratory Rate 16 07/16/20 08:25 Respiratory Effort 07/16/20 08:25 Respiratory Depth Normal 07/16/20 08:25 Respiratory Pattern Normal 07/16/20 08:25 Blood Pressure 102/53 L 07/16/20 08:25 Pulse Oximetry 94 07/16/20 08:25 Oxygen Delivery Method Room Air 07/16/20 08:25 Oxygen Flow Rate 0 07/16/20 08:25 Pain Level 0 07/15/20 15:08 Intake & Output 07/15/20 07/16/20 07/16/20 23:59 11:59 23:59 Intake Total 950 / 2300 Balance 950 / 1600 Intake: IV 200 / 1300 Oral 750 / 1000 Other: Urine Color Yellow Urine Appearance Clear Urine Odor Normal Comment pt voiding independently. Voiding Methods Toilet Toilet [facility] Medical History (Updated 07/16/20 @ 12:26 by Hattie Doran MD) Low back pain Obesity, morbid, BMI 40.0-49.9 Surgical History (Updated 07/12/20 @ 00:14 by Sonny Brewer) History of back surgery Family History (Updated 07/12/20 @ 00:14 by Sonny Brewer) Other Colon cancer Social History (Updated 07/12/20 @ 00:16 by Sonny Brewer) Smoking risk assessment performed?: No Alcohol Intake: current Alcohol Intake frequency: holidays/special occasions only Details: 4-5 beers twice a week or so Drug use: Never Do you feel safe at home: Yes Do you feel safe in your relationship?: Yes 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
--- NOTE | 2020-07-16 14:29 | PDOC.CMDIS ---
- If Service Date Differs Date of service: 07/16/20 Time of Service: 14:29 LACE Index Scoring Tool - Questions: Length of Stay (in days): 4 - 6 Acuity (Admit via E.D.?): No E.D. Visits: 0 - Answers: Total Score: 4 Risk of Readmission: Low Risk Care Management Discharge Reason for Hospitalization: Pneumonia due to Covid 19 virus Discharge Plan: Markus will return home with no new services. He will follow up with his community providers and plan of care and transport with family. Patient/Family Education Needs: Review of discharge instructions, including use of IS and proning, limitations, follow up plan, Ask Me Three.
== END 2020-07-16 12:53 | disposition home or self-care (01) | DRG 177 ==
PROVIDERS: Internal Medicine; Admitting Provider Family Medicine; PCP Internal Medicine; Visit Provider Family Medicine
DX: U07.1 COVID-19 (principal); J12.82 Pneumonia due to coronavirus disease 2019; Z68.42 Body mass index [BMI] 45.0-49.9, adult; R09.02 Hypoxemia; E66.01 Morbid (severe) obesity due to excess calories; M54.5 Low back pain; R73.9 Hyperglycemia, unspecified; T38.0X5A Adverse effect of glucocorticoids and synthetic analogues, initial encounter; I95.1 Orthostatic hypotension; R73.03 Prediabetes
CPT/HCPCS: 36415; 80048; 80053; 80076; 82306; 84145; 86850; 86900; 86901; 94618; 99222; 99231; 99232; 99239; 99356; J1650; 82728; 83036; 83615; 83735; 83880; 84484; 85025; 85049; 85379; 86140; 99233; J1100; J8540